=== PATIENT | female | born 1950 | race Caucasian/White ===

== ENCOUNTER 2018-08-15 11:45 | Emergency (ER) | payer OTHER ==
[~2018-08-15] VITALS: Ht 172.7 cm; Wt 64.4 kg
[~2018-08-15 11:45] MED LIST: AVAPRO75 MG; DILTIAZEM ER120 M2; PLAVIX75 MG; PRILOSEC40 MG; TESSALON PERLE100 MG
== END 2018-08-15 14:33 | disposition home or self-care (01) ==
LOC: ER 11:45
DX: B34.9 Viral infection, unspecified (principal); J11.1 Influenza due to unidentified influenza virus with other respiratory manifestations

== ENCOUNTER 2018-08-18 10:24 | Emergency (ER) | payer OTHER ==
[~2018-08-18] VITALS: Ht 172.7 cm; Wt 63.5 kg
[2018-08-18] MEDS ORDERED: DOXAZOSIN MESYLA2 MG (10:33)
[2018-08-18] MEDS ORDERED: AMLODIPINE-ATO1 EAC1 (10:33)
[2018-08-18] MEDS ORDERED: TESSALON PERLE100 M1 PO (11:11)
[2018-08-18] MEDS ORDERED: ZITHROMAX TRI-500 MG PO (11:11)
[2018-08-18] MEDS ORDERED: PROMETH-CODEIN 65 ML PO (11:11)
[2018-08-18] MEDS ORDERED: MUCINEX DM ER1 EAC1 PO (11:11)
== END 2018-08-18 11:44 | disposition home or self-care (01) ==
LOC: ER 10:24
DX: J03.90 Acute tonsillitis, unspecified (principal); J32.8 Other chronic sinusitis

== ENCOUNTER 2019-06-23 15:03 | Emergency (ER) | payer OTHER ==
[~2019-06-23] VITALS: Ht 175.3 cm; Wt 74.8 kg
[~2019-06-23 15:03] MED LIST changes: +AMLODIPINE-ATO1 EAC1; +DOXAZOSIN MESYLA2 MG; +MUCINEX DM ER1 EAC1 PO; +PROMETH-CODEIN 65 ML PO; +TESSALON PERLE100 M1 PO; +ZITHROMAX TRI-500 MG PO
== END 2019-06-23 20:52 | disposition home or self-care (01) ==
LOC: ER 15:03
DX: H66.91 Otitis media, unspecified, right ear (principal)